=== PATIENT | female | born 1940 | race Caucasian/White ===

== ENCOUNTER 2016-12-20 12:16 | Observation (INO) | payer BC ==
--- NOTE | ~2016-12-20 | OP ---
Record Of Operation [facility] [address] [place]. [address] NAME: WILBERT SQUIRES : 44 STATUS : ADM Esvin PAT#: [id number] AGE: 76 ADM/REG DATE : 12/20/16 MR#: [id number] REPORT SERV DATE: 12/20/16 DICTATED BY: RIGO COFFMAN DATE: 12/20/16 REPORT STATUS : Draft TRANSCRIBED BY: MODL DATE: 12/20/16 DATE OF PROCEDURE: 12/20/2016 PREOPERATIVE DIAGNOSIS: Claudication, right lower extremity. POSTOPERATIVE DIAGNOSIS: Claudication, right lower extremity. FINDINGS: Two areas of stenosis of the right superficial femoral artery stented portion, both approximately 80% stenosis. SURGERY PERFORMED: 1. Right lower extremity arteriogram. 2. Balloon angioplasty of the superficial femoral artery using a 4 x 100 standard balloon followed by a drug-eluting balloon of a 4 x 150 of the superficial femoral artery. SURGEON: Rigo Coffman M.D. DESCRIPTION OF PROCEDURE: The patient was placed under IV sedation. Both groins were prepped and draped in a sterile fashion. Left femoral artery cannulated with ultrasound direction. A needle, wire, and sheath were placed. A UF catheter was placed into the distal abdominal aorta and an aortogram done distally and the pelvic runoff showing the both iliacs were patent and the aorta was small. The right iliac was then cannulated. The UF was manipulated up and over the bifurcation. The external iliac artery was patent. Angiogram of the right lower extremity showed the profunda was patent and the common femoral was patent. There was some stenosis in the common femoral. The SFA showed a very high- grade lesion in the upper portion which was stented, probably over 90% stenosis. A second area of stenosis was noted in the mid thigh, this being probably 80% to 90% stenotic. The rest of the SFA popliteal two-vessel runoff were noted. With this finding, a 6 x 45 sheath placed up and over the bifurcation. She was given 2500 units of heparin. After an adequate period of time, a wire had been placed through the areas of stenosis. They were first ballooned with a 4 x 100 regular balloon. After this was completed, then a 5 x 150 drug- eluting balloon was placed. This was able to be placed across both stenotic segments. This was inflated to 14 atmospheres of pressure for three minutes. This was then deflated, and again, the rest of the area of the stent and SFA was then ballooned with the same balloon until the entire stent had been ballooned. The final film showing good flow through the stent. There was no residual significant stenosis noted. The sheath was pulled back up and around to the left side. The groin angiogram showed a small common femoral artery, therefore, an Exoseal closure was used which worked effectively, then a pressure dressing was applied. Estimated blood loss 20 mL. The patient tolerated the procedure, well went to recovery room in good condition. MG/MODShavonne Rigo Record Of [address] [address] NAME: WILBERT SQUIRES : 44 STATUS : ADM Esvin PAT#: [id number] AGE: 76 ADM/REG DATE : 12/20/16 MR#: [id number] REPORT SERV DATE: 12/20/16 DICTATED BY: RIGO COFFMAN DATE: 12/20/16 REPORT STATUS : Draft TRANSCRIBED BY: MODL DATE: 12/20/16 Minoo Coffman / [id number] CC: Rigo Coffman M.D.
[~2016-12-20 12:16] MED LIST: AMARYL2 PO; AMARYL4 PO; ASAB PO; C5 PO; CELEXA10 PO; CRESTOR10 PO; FORTAMET1000 MG PO; GLUCOPHAGE1000 MG PO; LANTUSCART SC; MONOPRIL40 MG PO; NEUR100 PO; NEUR300 PO; NORV10 PO; PLAVIX PO; PRAVAC PO; STOOL SOFTEN240 MG PO; TRILIPIX45 MG PO
[2016-12-20 12:50] LABS: BASOPHILS 0.5 %; BASOPHILS ABSOLUTE 0.04 10/3/uL (0.0-0.16); EOSINOPHILS 4.9 %; EOSINOPHILS ABSOLUTE 0.41 10/3/uL (0.0-0.53); HEMATOCRIT 46.8 % (36.0-48.0); HEMOGLOBIN 15.6 g/dL (12.0-16.0); IMMATURE GRANULOCYTES 0.2 %; IMMATURE GRANULOCYTES ABSOLUTE 0.02 10/3/uL (0.0-0.11); LYMPHOCYTES 16.7 %; MEAN CORPUS HGB CONC 33.3 g/dL (32.0-36.0); MEAN CORPUSCULAR HEMOGLOB 29.5 pg (26.0-34.0); MEAN CORPUSCULAR VOLUME 88.6 fL (80-100); MONOCYTES 6.3 %; MONOCYTES ABSOLUTE 0.53 10/3/uL (0.21-1.20); NEUTROPHILS 71.4 %; NEUTROPHILS ABSOLUTE 5.97 10/3/uL (2.02-8.40); PLATELET COUNT 243 10/3/uL (150-400); RBC DISTRIBUTION WIDTH 13.2 % (12.0-16.0); RED CELL COUNT 5.28 10/6/uL (4.0-5.6); WHITE BLOOD CELLS 8.4 10/3/uL (4.5-10.5)
[2016-12-20 12:52] LABS: MANUAL DIFF NO %
[2016-12-20 13:03] LABS: BUN (BLOOD UREA NITROGEN) 20 MG/DL (6-23); CALCIUM, SERUM 8.8 MG/DL (8.5-10.4); CHLORIDE, SERUM 106 MMOL/L (96-112); CO2 (CARBON DIOXIDE) 29 MMOL/L (24-34); GFR AFRICAN AMERICAN 47 ML/MIN (>=60); GFR NON AFRICAN AMERICAN 40 ML/MIN (>=60); GLUCOSE, SERUM 285 MG/DL (60-99); POTASSIUM, SERUM 4.7 MMOL/L (3.5-5.3); SODIUM, SERUM 139 MMOL/L (135-148)
== END 2016-12-21 17:55 | disposition home or self-care (01) ==
LOC: SDC 12:16 → SDC/OF 15:46 → 1SO 19:55
PROVIDERS: Surgery Vascular Surgery
DX: I73.9 Peripheral vascular disease, unspecified (principal); I10 Essential (primary) hypertension; E11.9 Type 2 diabetes mellitus without complications; J44.9 Chronic obstructive pulmonary disease, unspecified; E78.5 Hyperlipidemia, unspecified; Z88.5 Allergy status to narcotic agent; Z88.8 Allergy status to other drugs, medicaments and biological substances
CPT/HCPCS: 37224; 75625; 75710; 80048; 82962; 85025; 93005; A9270-GY; C1725; C1760; C1769; C1894; G0378; J0690; J2250; J2370; J3010; Q9966